=== PATIENT | male | born 1985 | race Caucasian/White ===

== ENCOUNTER 2021-07-22 15:10 | Emergency (ER) | payer MEDICAID, SELFPAY ==
[2021-07-22 15:31] VITALS: BP 123/98; PULSE 74; RESP 18; TEMP 37; O2SAT 98
--- NOTE | 2021-07-22 15:37 | W.ED.GENAD ---
Discharge Plan Disposition Patient Disposition: HOME Condition: Stable Discharge Details Clinical Impression: Fall, Lumbago with sciatica, left side Primary Care Provider: Unknown,Unknown ED Provider: Kandi Ohara Home Meds and New Rx's Prescriptions: New gabapentin 600 mg tablet 600 mg PO TID PRN (Reason: muscle spasm) 28 Days Qty: 84 RF: 0 Continued gabapentin 600 mg Tablet 600 mg PO TID RF: 0 diazepam 5 mg Tablet 5 mg PO DAILY RF: 0 buprenorphine-naloxone [Suboxone] 8-2 mg Film 16 film sublingual DAILY RF: 0 Discharge Instructions Instructions: Low Back Strain (ED), Fall Prevention (ED) Additional Instructions: Alternate Ice and Heat. Take Tylenol or Ibuprofen every 4-6 hours as needed for pain and swelling. Keep abrasion clean and dry. Wash daily with soap and water. Follow up with PCP in 1-2 weeks if possible for establishment. Stand Alone Forms: Work Release Referrals: Alfredo Ward [ NON-[facility] STAFF PHYSICIAN] - 2 weeks Jet Roberts PA [NURSE PRACTITIONER] - Discharge Data Discharge Date/Time-TO BE ENTERED AT DEPARTURE: 07/22/21 15:58 Medical Decision Making 36 year bettie male presents to ED with left lower back pain with radiation down left leg s/p a slip off 3 rungs from a ladder [employer]. He reports he hit his left side of head on the ladder and has a superficial abrasion to left anterior patel. Denies trouble urinating, loss of bowel or bladder control. He describes pain as muscle spasms. Patient has a hx of lumbar fusion surgery, neuropathy and low back pain. Reports he ran out of his Gabapentin 600mg PO TID 2 days ago, just moved here and has not been established with a PCP. At this time imaging not needed due to patient did not actually fall onto the ground. Patient reports that this is consistent with his chronic pain. I do expect exacerbated sciatica type pain. Patient given Gabapentin refill prescription, referred to PCP for establishment, patient instructed to be off work for couple days if needed, instructed on wound care and strict return instructions. Verbalized understanding. Patient discharged in stable condition ambulatory in department. HPI General Mode of arrival: ambulatory. Date/Time Provider Initiated Documentation: 07/22/21 15:31. Limitations to Documentation: no limitations. Information obtained by: patient and RN notes reviewed. 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 He reports he hit his left side of head on the ladder and has a superficial abrasion to left anterior patel. Denies trouble urinating, loss of bowel or bladder control. He describes pain as muscle spasms. Patient has a hx of lumbar fusion surgery, neuropathy and low back pain. Reports he ran out of his Gabapentin 600mg PO TID 2 days ago, just moved here and has not been established with a PCP. Related Data Home Medications Medication Instructions Recorded Confirmed buprenorphine-naloxone [Suboxone] 16 film SUBLINGUAL DAILY 07/22/21 07/22/21 diazepam 5 mg PO DAILY 07/22/21 07/22/21 gabapentin 600 mg PO TID 07/22/21 07/22/21 gabapentin 600 mg PO TID PRN 28 Days #84 tab 07/22/21 Previous Rx's Medication Instructions Recorded gabapentin 600 mg PO TID PRN 28 Days #84 tab 07/22/21 Allergies Allergy/AdvReac Type Severity Reaction Status Date / Time Sulfa (Sulfonamide Allergy Unverified 07/22/21 15:34 Antibiotics) General Stated Complaint: Nk/Back Pain STEVE: 3 Review of Systems All systems reviewed & are unremarkable except as noted in HPI and below Constitutional Constitutional: Reports as per HPI Gastrointestinal Gastrointestinal: Denies constipation and Denies fecal incontinence Genitourinary Genitourinary: Denies difficulty urinating, Denies urinary hesitancy and Denies urinary incontinence Musculoskeletal Musculoskeletal: Reports as per HPI, Reports abnormal gait, Denies limited range of motion, Denies loss of height and Reports stiffness Integumentary/Breasts Skin/Breast: Reports wounds (Left anterior patel superfiscial abrasion) Neurologic Neurologic: Reports abnormal gait [facility] Surgical History (Updated 07/22/21 @ 15:43 by Kandi Ohara) History of lumbar fusion Social History Smoking/Tobacco Use Status: Current every day Smoking risk assessment performed?: Yes Alcohol Intake: never Substance use type: former substance user Do you feel safe at home: Yes Do you feel safe in your relationship?: Yes Exam Const General: cooperative, comfortable, well developed and well groomed Nutritional Appearance: average body habitus Orientation: alert, awake and oriented x3 Back/Spine/Pelvis Cervical Spine: normal cervical lordosis Other: Healed Surgical scar noted to lower lumbar spine area, left sided paraspinous tenderness with palpation. No crepitus or step off with palpation Extrem Left lower extremity: lower leg Details: abrasion Upper/lower leg/hip images: 1. Anterior superficial abrasion noted. Course Vital Signs Vital signs: Vital Signs Temperature 37 C 07/22/21 15:31 Pulse 74 07/22/21 15:31 Respiratory Rate 18 07/22/21 15:31 Blood Pressure 123/98 H 07/22/21 15:31 Pulse Oximetry 98 07/22/21 15:31 Temperature 37 C 07/22/21 15:31 Temperature Source Temporal Artery Scan 07/22/21 15:31 Pulse 74 07/22/21 15:31 Respiratory Rate 18 07/22/21 15:31 Blood Pressure 123/98 H 07/22/21 15:31 Blood Pressure Position Sitting 07/22/21 15:31 Pulse Oximetry 98 07/22/21 15:31 Oxygen Delivery Method Room Air 07/22/21 15:31 Oxygen Flow Rate 0 07/22/21 15:31
[2021-07-22 15:52] VITALS: BP 123/98; PULSE 74; RESP 18; TEMP 37; O2SAT 98
[2021-07-22] MEDS: Gabapentin 300 MG CAP 600 MG PO (15:52)
== END 2021-07-22 15:58 | disposition home or self-care (01) ==
PROVIDERS: Emergency Provider Registered Nurse Emergency
DX: M54.42 Lumbago with sciatica, left side (principal); W17.89XA Other fall from one level to another, initial encounter
CPT/HCPCS: 99283

== ENCOUNTER 2023-07-18 10:26 | Emergency (ER) | payer MEDICAID, SELFPAY ==
[2023-07-18 10:31] VITALS: BP 113/77; PULSE 71; RESP 18; O2SAT 100
[2023-07-18 11:05] LABS: Abs Immature Grans 0.01 10^3/uL (0.0-0.06); Absolute Basophil Count 0.04 10^3/uL (0.0-0.2); Absolute Eosinophil Count 0.17 10^3/uL (0.0-0.7); Absolute Lymphocyte Count 2.34 10^3/uL (1.2-3.4); Absolute Monocyte Count 0.56 10^3/uL (0.1-0.8); Absolute Neutrophil Count 3.85 10^3/uL (1.2-6.7); Basophils % 0.6; Eosinophils % 2.4; HCT 41.5 % (40.0-50.0); HGB 14.1 g/dL (13.5-17.5); Immature Grans % 0.1; Lymphocytes % 33.6; MCH 28.8 pg (27.0-33.0); MCV 85 fL (80-95); MPV 9.7 fL (8.0-11.0); Neutrophils % 55.3; Platelet Count 273 10^3/uL (130-400); RBC 4.89 10^6/uL (4.36-5.78); RDW 12.4 % (11.8-14.1); RDW-SD 38.2 fL; WBC 6.97 10^3/uL (4.4-10.8)
[2023-07-18 11:24] LABS: Salicylate < 2.8 mg/dL (<2.8)
[2023-07-18 11:25] LABS: Acetaminophen < 2 ug/mL (10-30)
[2023-07-18 11:36] LABS: TSH (W/Ref FT4) 3.63 uIU/mL (0.36-3.74)
[2023-07-18 11:38] LABS: ALT 21 U/L (16-63); AST 25 U/L (15-37); Albumin 4.4 g/dL (3.4-5.0); Alkaline Phosphatase 64 U/L (46-116); Anion Gap 6.9 mmol/L (3-11); BUN 21 mg/dL (7-18); Bilirubin, Total 0.4 mg/dL (0.2-1.0); CO2 30.1 mmol/L (21.0-32.0); CREATININE 0.9 mg/dL (0.70-1.30); Chloride 97 mmol/L (98-107); Estimated GFR 113.51 (mL/min/1.73m2); Glucose 85 mg/dL (74-106); Lipase 16 U/L (16-77); Potassium 3.7 mmol/L (3.5-5.1); Sodium 134 mmol/L (136-145); Total Protein 8.1 g/dL (6.4-8.2)
[2023-07-18 11:49] LABS: ETHANOL BLOOD < 3.0 mg/dL (<10)
--- NOTE | 2023-07-18 12:04 | NUR.NOTE ---
Nursing Note: PT belongings locked & secured in ZONE B #1
[2023-07-18] MEDS: clonazePAM 1 MG TAB PO (12:14)
[2023-07-18 12:30] LABS: *AMPHETAMINES SCREEN URINE Positive (Negative); *BARBITURATES SCREEN URINE Negative (Negative); *BENZODIAZEPINES SCREEN URINE Negative (Negative); Cannabinoids THC Positive (Negative); Cocaine Screen,Urine Negative (Negative); METHADONE URINE SCREEN Negative (Negative); OPIATES URINE SCREEN Negative (Negative)
[2023-07-18 12:31] LABS: Tricyclic Antidepressants Negative (Negative)
--- NOTE | 2023-07-18 14:13 | W.ED.GENAD ---
Discharge Plan Disposition Patient Disposition: Home Discharge Details Clinical Impression: Mood disorder, Polysubstance abuse Primary Care Provider: Unknown,Unknown ED Provider: Caitlin Meng Home Meds and New Rx's Prescriptions: Continued gabapentin 600 mg Tablet 600 mg PO TID diazepam 5 mg Tablet 5 mg PO DAILY buprenorphine-naloxone [Suboxone] 8-2 mg Film 16 film sublingual DAILY Discharge Instructions Additional Instructions: You have declined mental health assessment replacement, please be reevaluated by your provider at your earliest ability Discharge Data Discharge Date/Time-TO BE ENTERED AT DEPARTURE: 07/18/23 15:07 Medical Decision Making 38-year-old male, alert, oriented, nonfocal neurological exam, verbose, flight of ideas, does report taking Vyvanse and phenobarbital this morning although tox screen is negative for barbiturates interestingly. Is positive for amphetamines and marijuana. Took his Suboxone prior to arrival. Being removed from Klonopin secondary to phenobarbital reportedly in his system by a psychiatrist at [facility]. Denying specific suicidality. Reports significant depression, denies any alcohol consumption. Denies any auditory visual hallucinations. Denies fever or chills. Denies recent IV drug use. Patient was evaluated by [facility]: Does not qualify for , will assess voluntary placement Of note, patient has had numerous complaints against the hospital stating he is going to file a complaint regarding inappropriate care let me have my hoody or I will hang myself from the ceiling with these blankets Patient does not wish to be involved in his care, he is fully alert, oriented, of decisional capacity, does not endorse current suicidality, is ambulatory with steady gait, we offered resources and voluntary placement and patient has declined At time of discharge she states that he will be calling 911 arrived to [place] or [facility] HPI General Date/Time Provider Initiated Documentation: 07/18/23 10:32. HPI Narrative: This 38-year-old gentleman with past medical history depression, anxiety, polysubstance abuse presents for report of intermittent suicidality with depression. Using a friend's phenobarbital and Vyvanse. Reports that his psychiatrist at [facility] is weaning him off Klonopin as he tested positive for phenobarbital and states he is run out of his Klonopin. Denies any chest pain or shortness of breath. Denies any specific pain complaints. Denies specific plan to harm himself at this time. Requesting to go to [place]. Denies auditory or visual hallucinations. Denies homicidal ideation. Denies any attempts to harm self today. States has had numerous mental health admissions in the past. Last was several months ago. Related Data Home Medications Medication Instructions Recorded Confirmed buprenorphine 8 mg-naloxone 2 mg 16 film sublingual DAILY 07/22/21 07/22/21 sublingual film (Suboxone) diazepam 5 mg tablet 5 mg PO DAILY 07/22/21 07/22/21 gabapentin 600 mg tablet 600 mg PO TID 07/22/21 07/22/21 Allergies Allergy/AdvReac Type Severity Reaction Status Date / Time Sulfa (Sulfonamide Allergy Unverified 07/22/21 15:34 Antibiotics) General Stated Complaint: PsychEval STEVE: 2 PFSH All Active Problems (Updated 07/22/21 @ 15:43 by Kandi Ohara NP) Polysubstance abuse (Acute) Mood disorder (Acute) Lumbago with sciatica, left side (Acute) Fall (Acute) History of lumbar fusion (Acute) Social History Smoking/Tobacco Use Status: Former Tobacco Use Tobacco: How many years used: 20 Smoking risk assessment performed?: Yes Alcohol Intake: never Substance use type: marijuana and prescription drug Details: uses Vyvanse not prescribed REINALDO HUIZAR 07/18/23 Housing: homeless Do you feel safe at home: Yes Do you feel safe in your relationship?: Yes Additional Social history: family in [place] and [place] have no family here in [place]. REINALDO HUIZAR 07/18/2023 Course Vital Signs Vital signs: Vital Signs Pulse 71 07/18/23 10:31 Respiratory Rate 18 07/18/23 10:31 Blood Pressure 113/77 07/18/23 10:31 Pulse Oximetry 100 07/18/23 10:31 Pulse 71 07/18/23 10:31 Respiratory Rate 18 07/18/23 10:31 Respiratory Effort Normal 07/18/23 10:40 Blood Pressure 113/77 07/18/23 10:31 Pulse Oximetry 100 07/18/23 10:31 Lab/Test Results Lab/Test Results: Laboratory Tests Range/Units 07/18/23 07/18/23 07/18/23 10:48 10:58 12:10 WBC (4.4-10.8) 10^3/uL 6.97 RBC (4.36-5.78) 10^6/uL 4.89 Hgb (13.5-17.5) g/dL 14.1 Hct (40.0-50.0) % 41.5 MCV (80-95) fL 85 MCH (27.0-33.0) pg 28.8 MCHC (32.0-36.0) % 34.0 RDW (11.8-14.1) % 12.4 Plt Count (130-400) 10^3/uL 273 MPV (8.0-11.0) fL 9.7 Immature Gran % 0.1 Neutrophils % 55.3 Lymphocytes % 33.6 Monocytes % 8.0 Eosinophils % 2.4 Basophils % 0.6 Nucleated RBC % (0.0-0.3) % 0.0 Absolute Neutrophils (1.2-6.7) 10^3/uL 3.85 Absolute Lymphocytes (1.2-3.4) 10^3/uL 2.34 Absolute Monocytes (0.1-0.8) 10^3/uL 0.56 Absolute Eosinophils (0.0-0.7) 10^3/uL 0.17 Absolute Basophils (0.0-0.2) 10^3/uL 0.04 Sodium (136-145) mmol/L 134 L Potassium (3.5-5.1) mmol/L 3.7 Chloride (98-107) mmol/L 97 L Carbon Dioxide (21.0-32.0) mmol/L 30.1 Anion Gap (3-11) mmol/L 6.9 BUN (7-18) mg/dL 21 H Creatinine (0.70-1.30) mg/dL 0.9 Est GFR (CKD-EPI 2020) (mL/min/1.73m2) 113.51 Glucose (74-106) mg/dL 85 Calcium (8.5-10.1) mg/dL 10.0 Total Bilirubin (0.2-1.0) mg/dL 0.4 AST (15-37) U/L 25 ALT (16-63) U/L 21 Alkaline Phosphatase (46-116) U/L 64 Total Protein (6.4-8.2) g/dL 8.1 Albumin (3.4-5.0) g/dL 4.4 Lipase (16-77) U/L 16 TSH (0.36-3.74) uIU/mL 3.63 Salicylates (<2.8) mg/dL < 2.8 Urine Opiates Screen (Negative) Negative Urine Methadone Screen (Negative) Negative Acetaminophen (10-30) ug/mL < 2 Ur Barbiturates Screen (Negative) Negative Ur Tricyclics Screen (Negative) Negative Ur Amphetamines Screen (Negative) Positive A U Benzodiazepines Scrn (Negative) Negative Urine Cocaine Screen (Negative) Negative Ur THC Screen (Negative) Positive A Ethyl Alcohol (<10) mg/dL < 3.0 PAWSS Have you Been Recently Intoxicated or Drunk Within the Last 30 days?: No Have you Ever Experienced Previous Episodes of Alcohol Withdrawal?: No Have you ever Experienced Withdrawal Seizures?: No Have you ever Experienced Delirium Tremens(DT)s?: No Have you ever undergone Alcohol Rehabilitation Treatment (i.e, inpt ot outpatient treatment programs)?: No Have you ever Experienced Blackouts?: No Have you ever Combined Alcohol with other Downers within the last 90 days?: No Have you ever Combined Alcohol with any other Substance of Abuse during the last 90 days?: No Result: 0
--- NOTE | 2023-07-18 14:27 | NUR.NOTE ---
Nursing Note: 1144 This RN walked in to Patient's room patient was biting and picking at the stitches on the facility provided bath blanket. After asking what was the patient was planning on doing with the blankets Patient told this RN that if we don't give him his hoodie back I will hang my self from up there (pointing at the ceiling) with this (gesturing to blanket) This RN, CPSO and security standing by took all blankets and sheets from [facility] and replaced with facility provided blankets that are unable to be ripped or torn by hand. One blanket on the bottom to lay on and one to cover. Patient unhappy with plan but used blankets as provided.
--- NOTE | 2023-07-18 15:05 | NUR.NOTE ---
Nursing Note: was reported to this RN By [facility] worker that patient expressed wishes to leave and go to [facility]. Mental health workers also stated that patient said I dont have to answer any of your questions also I don't have to talk to you if I don't want to patient was D/C given all belongings back, was given a number for [facility] [employer] as requested by patient. Patient refused to sign any discharge paperwork. Patient told this RN and security that he plans on calling the ambulance as soon as he leaves and they will take him to another hospital because I have money and they will take me anywhere I need to go Patient walked out of facility on own accord.
[2023-07-18 15:13] VITALS: TEMP 36.5
== END 2023-07-18 15:07 | disposition home or self-care (01) ==
PROVIDERS: Emergency Provider Physician Assistant
DX: F39 Unspecified mood [affective] disorder (principal); F32.A Depression, unspecified; F19.10 Other psychoactive substance abuse, uncomplicated; Z87.891 Personal history of nicotine dependence; Z59.00 Homelessness unspecified
CPT/HCPCS: 80053; 80307; 83690; 99284; 80320; 80329; 84443; 85025

== ENCOUNTER 2024-04-04 01:24 | Emergency (ER) | payer SELFPAY ==
[2024-04-04 01:27] VITALS: PULSE 120; RESP 18; TEMP 35.8; O2SAT 96
[2024-04-04 01:30] VITALS: BP 113/86
--- NOTE | 2024-04-04 01:42 | ED.GENADUL_ITS ---
Discharge Plan Disposition Patient Disposition: Home Condition: Stable Discharge Details Chief Complaint: DentalOral Clinical Impression: Encounter for medical screening examination Primary Care Provider: Unknown,Unknown ED Provider: Dimple Gonzalez Home Meds and New Rx's Prescriptions: No Action clonazepam 0.5 mg tablet 1 mg PO BID Patient Comments: TAKE ONE TABLET BY MOUTH NIGHTLY clonidine HCl 0.1 mg tablet 0.1 mg PO ONCE PRN Patient Comments: TAKE ONE TABLET BY MOUTH TWICE DAILY NEEDED FOR ANXIETY dextroamphetamine-amphetamine 20 mg capsule,extended release 24hr 20 mg PO DAILY Patient Comments: TAKE ONE CAPSULE BY MOUTH ONCE DAILY losartan 25 mg tablet 50 mg PO DAILY Patient Comments: TAKE 1 TABLET BY MOUTH EVERY DAY buprenorphine HCl 8 mg tablet, sublingual 16 mg sublingual DAILY HPI General Mode of arrival: ambulatory . Date/Time Provider Initiated Documentation: 04/04/24 01:28 . Limitations to Documentation: no limitations . Information obtained by: patient . Related Data Home Medications ?Medication ?Instructions ?Recorded ?Confirmed buprenorphine HCl 8 mg sublingual 16 mg sublingual DAILY 04/04/24 04/04/24 tablet clonazepam 0.5 mg tablet 1 mg PO BID 04/04/24 04/04/24 clonidine HCl 0.1 mg tablet 0.1 mg PO ONCE PRN 04/04/24 04/04/24 dextroamphetamine-amphetamine ER 20 mg PO DAILY 04/04/24 04/04/24 20 mg 24hr capsule,extend release losartan 25 mg tablet 50 mg PO DAILY 04/04/24 04/04/24 Allergies Allergy/AdvReac Type Severity Reaction Status Date / Time Sulfa (Sulfonamide Allergy Hives Unverified 04/04/24 01:33 Antibiotics) General Stated Complaint: DentalOral STEVE: 4 Review of Systems Narrative: UTO Exam Narrative Exam Narrative: General: Alert, in no acute distress. Head: Normocephalic, atraumatic Neck: Trachea midline, ?Neck supple. Cardiac: No cyanosis. Resp: No respiratory distress. Speaking in full sentences. Abd: ?Non-distended Extremities: ?No deformities.? Neurologic: Alert. ? Moves all extremities freely against gravity Psych: Restless, cooperative.? Adequate hygiene. Speech slightly fast but not pressured with normal volume, rate, rythym and tone. Goal directed.? Denies SI/HI/AH/VH. ? Does not appear to be responding to internal stimuli. Course Vital Signs Vital signs: Vital Signs Temperature 35.8 C L 04/04/24 01:27 Pulse 120 H 04/04/24 01:27 Respiratory Rate 18 04/04/24 01:27 Pulse Oximetry 96 04/04/24 01:27 Temperature 35.8 C L 04/04/24 01:27 Temperature Source Skin 04/04/24 01:27 Pulse 120 H 04/04/24 01:27 Respiratory Rate 18 04/04/24 01:27 Respiratory Effort Normal 04/04/24 01:30 Blood Pressure 113/86 04/04/24 01:30 Blood Pressure Position Sitting 04/04/24 01:27 Pulse Oximetry 96 04/04/24 01:27 Oxygen Delivery Method Room Air 04/04/24 01:27 Oxygen Flow Rate 0 04/04/24 01:27 Medical Decision Making 38yo M presents with cc of dental pain in triage. Tachycardiac after ambulating into the department, vital signs otherwise reassuring. Restless on exam, remains in hallway and did not proceed to treatment room. When I speak with Mr. Abbott and ask him what brings him to the emergency department he states nothing, I don't need anything, she can tell you (gesturing to the nurse). I asked if there was anything we could help him with, he then asks for a a printout of all the places near here that would tow a car. I informed him that I could not help with this, and asked if there were any medical issues he was having. He stated no . I then inquired if he was looking for any psychiatric help or having any psychiatric issues; he again stated no and I'll just leave. Declined further evaluation/exam/questioning. I have no indication to hold him and cannot evaluate him further without his willingness to engage in history or exam. Ambulated out of the department with a steady gait; did not wait for paperwork. Quality:SDOH Health Related Social Needs: No Data to Display PFSH All Active Problems (Updated 07/22/21 @ 15:43 by Kandi Ohara NP) Encounter for medical screening examination (Acute) Lumbago with sciatica, left side (Acute) Fall (Acute) History of lumbar fusion (Acute) Social History Smoking/Tobacco Use Status: Former Tobacco Use Tobacco: How many years used: 20 Smoking risk assessment performed?: Yes Alcohol Intake: never Substance use type: marijuana and prescription drug Details: uses Vyvanse not prescribed REINALDO HUIZAR 07/18/23 Housing: homeless Do you feel safe at home: Yes Do you feel safe in your relationship?: Yes Additional Social history: family in [place] and [place] have no family here in [place]. REINALDO HUIZAR 07/18/2023
== END 2024-04-04 01:46 | disposition home or self-care (01) ==
PROVIDERS: Emergency Provider Student in an Organized Health Care Education/Training Program
DX: Z53.21 Procedure and treatment not carried out due to patient leaving prior to being seen by health care provider (principal)

== ENCOUNTER 2024-04-06 07:45 | Inpatient (IN) | payer MEDICAID, SELFPAY ==
[2024-04-06] VITALS (46 sets, daily range): BP systolic 107–157; BP diastolic 49–97; PULSE 55–117; RESP 8–23; TEMP 36.1–37.8; O2SAT 94–100
--- NOTE | 2024-04-06 08:30 | RT.EKG_ITS ---
APPROVED REPORT Exam: Resting ECG Reason for Exam: overdose Patient Location: E HR:69 bpm ECG Measurements Heart Rate 69 AXIS RI 157 P 76 QRSd 84 QRS 61 QT 396 T 64 QTc 425 Conclusion Sinus rhythm...normal P axis, V-rate 60- 99 Probable left atrial enlargement...P >50mS, <-0.10mV V1 Probable left ventricular hypertrophy...multiple LVH criteria ST elev, probable normal early repol pattern...ST elevation, age<55 sinus rhtyhm, normal axis, normal intervals, consider hyperacute lateral t waves
[2024-04-06 08:59] LABS: Abs Immature Grans 0.01 10^3/uL (0.0-0.06); Absolute Basophil Count 0.04 10^3/uL (0.0-0.2); Absolute Eosinophil Count 0.12 10^3/uL (0.0-0.7); Absolute Lymphocyte Count 1.18 10^3/uL (1.2-3.4); Absolute Monocyte Count 0.51 10^3/uL (0.1-0.8); Absolute Neutrophil Count 3.96 10^3/uL (1.2-6.7); Basophils % 0.7 %; Eosinophils % 2.1 %; HCT 39.3 % (40.0-50.0); HGB 13.8 g/dL (13.5-17.5); Immature Grans % 0.2 %; Lymphocytes % 20.3 %; MCH 29.2 pg (27.0-33.0); MCHC 35.1 % (32.0-36.0); MCV 83 fL (80-95); MPV 10.9 fL (8.0-11.0); Monocytes % 8.8 %; Neutrophils % 67.9 %; Platelet Count 194 10^3/uL (130-400); RBC 4.72 10^6/uL (4.36-5.78); RDW 12.3 % (11.8-14.1); RDW-SD 37.7 fL; WBC 5.82 10^3/uL (4.4-10.8)
[2024-04-06 09:16] LABS: ALT 35 U/L (16-63); AST 67 U/L (15-37); Albumin 3.8 g/dL (3.4-5.0); Alkaline Phosphatase 77 U/L (46-116); Anion Gap 9.8 mmol/L (3-11); BUN 10 mg/dL (7-18); Bilirubin, Total 0.79 mg/dL (0.2-1.0); CO2 31.2 mmol/L (21.0-32.0); CREATININE 0.8 mg/dL (0.70-1.30); Calcium 9.1 mg/dL (8.5-10.1); Chloride 96 mmol/L (98-107); Estimated GFR 117.63 (mL/min/1.73m2); Glucose 98 mg/dL (74-106); Potassium 3.6 mmol/L (3.5-5.1); Sodium 137 mmol/L (136-145); Total Protein 7.9 g/dL (6.4-8.2)
[2024-04-06 09:20] LABS: ETHANOL BLOOD < 3.0 mg/dL (<10)
[2024-04-06 09:44] LABS: Acetaminophen < 2 ug/mL (10-30); Salicylate < 2.8 mg/dL (<2.8)
[2024-04-06 10:01] LABS: Bilirubin Negative (Negative); Blood Negative (Negative); Clarity Clear (Clear); Glucose Negative (Negative); Ketones Negative (Negative); Leukocyte Esterase Negative (Negative); Nitrite Negative (Negative); Specific Gravity <= 1.005 (1.005-1.025); Urobilinogen 0.2 mg/dL (Up to 0.2)
[2024-04-06 10:13] LABS: *AMPHETAMINES SCREEN URINE Negative (Negative); *BARBITURATES SCREEN URINE Negative (Negative); *BENZODIAZEPINES SCREEN URINE Negative (Negative); Cannabinoids THC Positive (Negative); Cocaine Screen,Urine Negative (Negative); METHADONE URINE SCREEN Negative (Negative); OPIATES URINE SCREEN Negative (Negative)
[2024-04-06 10:14] LABS: Tricyclic Antidepressants Negative (Negative)
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
--- NOTE | 2024-04-06 12:46 | W.PC.ACHO ---
Registration Status: Primary Language: Preferred Language: ED Information & Data Chief Complaint PsychEval 04/06/24 11:15 Triage Note drank a bottle of nyquil 04/06/24 07:52 last night-suicide attempt. lives in [facility]. was visiting in [place]- 2 nights ago -on his way back to [place].-- was in [id number] ER. spoke to crisis yesterday-was at urgent care . crisis offered him a care bed-pt declined. says he is in a complete crisis-needs inpt care. has no way to get to [place] for his vehicle . everything is in his vehicle-phone, wallet, clothes. states he just bought vehicle a few months ago-felt like he finally got everything together. feels like he can never do anything right. slept in a dumpster last night-back hurts. has been doing a lot of walking the last few days . Most Recent Vital Signs Temperature 36.2 C L 04/06/24 07:52 Temperature Source Temporal Artery Scan 04/06/24 07:52 Pulse 58 L 04/06/24 12:30 Pulse 75 04/06/24 12:31 Respiratory Rate 10 L 04/06/24 12:31 Respiratory Effort Normal 04/06/24 08:06 Blood Pressure 129/76 04/06/24 12:30 Blood Pressure Mean 94 04/06/24 12:30 Blood Pressure Position Sitting 04/06/24 07:52 Pulse Oximetry 100 04/06/24 12:31 Oxygen Delivery Method Room Air 04/06/24 12:30 Oxygen Flow Rate 0 04/06/24 12:30 Pain Level 5 04/06/24 07:52 Allergies Sulfa (Sulfonamide Antibiotics) Allergy (Unverified 04/06/24 08:02) Hives Active Medications Generic Name Dose Route Start Last Admin Trade Name Freq PRN Reason Stop Dose Admin Acetylcysteine 12,250 mg/ 200 mls @ 153.094 mls/hr 04/06/24 12:00 04/06/24 12:33 Dextrose/Water IV 04/06/24 13:18 153.094 mls/hr INFUSION ONE Infusion IV IV Catheter Type [Right Saline Lock Forearm] IV Catheter Gauge [Right 20 Forearm] Diet Orders Category Date Time Status Regular/Normal [DIET] Nutrition 04/06/24 Lunch Active Diagnostics 04/06/24 04/06/24 04/06/24 Range/Units 23:00 09:50 08:55 WBC Pending 5.82 (4.4-10.8) 10^3/uL RBC Pending 4.72 (4.36-5.78) 10^6/uL Hgb Pending 13.8 (13.5-17.5) g/dL Hct Pending 39.3 L (40.0-50.0) % MCV Pending 83 (80-95) fL MCH Pending 29.2 (27.0-33.0) pg MCHC Pending 35.1 (32.0-36.0) % RDW Pending 12.3 (11.8-14.1) % Plt Count Pending 194 (130-400) 10^3/uL MPV Pending 10.9 (8.0-11.0) fL Immature Gran % 0.2 % Neutrophils % 67.9 % Lymphocytes % 20.3 % Monocytes % 8.8 % Eosinophils % 2.1 % Basophils % 0.7 % Nucleated RBC % 0.0 (0.0-0.3) % Absolute Neutrophils 3.96 (1.2-6.7) 10^3/uL Absolute Lymphocytes 1.18 L (1.2-3.4) 10^3/uL Absolute Monocytes 0.51 (0.1-0.8) 10^3/uL Absolute Eosinophils 0.12 (0.0-0.7) 10^3/uL Absolute Basophils 0.04 (0.0-0.2) 10^3/uL PT Pending 10.0 (9.1-11.1) sec INR Pending 1.0 (0.9-1.1) Sodium Pending 137 (136-145) mmol/L Potassium Pending 3.6 (3.5-5.1) mmol/L Chloride Pending 96 L (98-107) mmol/L Carbon Dioxide Pending 31.2 (21.0-32.0) mmol/L Anion Gap Pending 9.8 (3-11) mmol/L BUN Pending 10 (7-18) mg/dL Creatinine Pending 0.8 (0.70-1.30) mg/dL Est GFR (CKD-EPI 2021) Pending 117.63 (mL/min/1.73m2) Glucose Pending 98 (74-106) mg/dL Calcium Pending 9.1 (8.5-10.1) mg/dL Total Bilirubin Pending 0.79 (0.2-1.0) mg/dL AST Pending 67 H (15-37) U/L ALT Pending 35 (16-63) U/L Alkaline Phosphatase Pending 77 (46-116) U/L Total Protein Pending 7.9 (6.4-8.2) g/dL Albumin Pending 3.8 (3.4-5.0) g/dL Urine Color Yellow (Yellow) Urine Clarity Clear (Clear) Urine pH 6.0 (5-8) Ur Specific [place] <= 1.005 (1.005-1.025) Urine Protein Negative (Neg-Trace) mg/dL Urine Ketones Negative (Negative) mg/dL Urine Blood Negative (Negative) Urine Nitrite Negative (Negative) Urine Bilirubin Negative (Negative) Urine Urobilinogen 0.2 (Up to 0.2) mg/dL Ur Leukocyte Esterase Negative (Negative) Urine Glucose Negative (Negative) mg/dL Salicylates < 2.8 (<2.8) mg/dL Urine Opiates Screen Negative (Negative) Urine Methadone Screen Negative (Negative) Acetaminophen < 2 (10-30) ug/mL Ur Barbiturates Screen Negative (Negative) Ur Tricyclics Screen Negative (Negative) Ur Amphetamines Screen Negative (Negative) U Benzodiazepines Scrn Negative (Negative) Urine Cocaine Screen Negative (Negative) Ur THC Screen Positive A (Negative) Ethyl Alcohol < 3.0 (<10) mg/dL Intake and Output - 24 Hour Total 04/06/24 07:45 thru 04/06/24 12:33 Intake Total 168.403 Balance 168.403 Weight 81.647 kg Intake: IV 168.403 Falls Risk Assessment History of Falls No History 04/06/24 09:06 Fall Total Score 0 04/06/24 09:06 Level of Risk Standard/Low Risk 04/06/24 09:06 v v v v v v v v v Sending and/or Receiving Nurses: Please use comment section below to note any information pertinent to the patient hand-off not included above. Information / Comments: Report received from: Migdalia
[2024-04-06] MEDS: clonazePAM 1 MG TAB PO (13:05)
--- NOTE | 2024-04-06 13:28 | NUR.NOTE ---
1300 itchy and light rash arms and neck. body feels like it is on fire. given klonopin 1mg per Dr Zuñiga.Nursing Note:
--- NOTE | 2024-04-06 13:46 | PHA.REVIEW2 ---
Pharmacy Admission Review Admission Clinical Review Admission Pharmacy Review: DVT prophylaxis (Acute) Itching due to drug (Acute) Depression with suicidal ideation (Acute) Acetaminophen overdose (Acute) Sulfa (Sulfonamide Antibiotics) Allergy (Unverified 04/06/24 08:02) Hives Resuscitation Status Full Code Height 6 ft 4 in Weight 81.647 kg Comments Comments/Follow Ups: Per morning meeting, patient staying for observation while receiving acetylcysteine and then will need psych placement. Will reach out regarding missing home med (Adderall) if patient is not discharged tomorrow Pharmacy Admission Review Renal Dosing Renal Dosing: BUN 10 mg/dL (7-18) 04/06/24 08:55 Creatinine 0.8 mg/dL (0.70-1.30) 04/06/24 08:55 Medications needing adjustments: Reviewed (CrCl 147.42 mL/min) List of meds needing interventions: Current medications are okay Anticoagulation Anticoagulation: Hgb 13.8 g/dL (13.5-17.5) 04/06/24 08:55 Hct 39.3 % (40.0-50.0) L 04/06/24 08:55 Plt Count 194 10^3/uL (130-400) 04/06/24 08:55 INR 1.0 (0.9-1.1) 04/06/24 08:55 Creatinine 0.8 mg/dL (0.70-1.30) 04/06/24 08:55 DVT Prophylaxis: Reviewed (None at this time) Relevant Labs Relevant Labs: Sodium 137 mmol/L (136-145) 04/06/24 08:55 Potassium 3.6 mmol/L (3.5-5.1) 04/06/24 08:55 Chloride 96 mmol/L (98-107) L 04/06/24 08:55 Electrolytes, C-Reactive P, ESR: Reviewed (AST 67) Cardiac Review BP, HR, EF%: Reviewed (BP WNL, HR 58, RR 10) QTc Review QTc: Reviewed (EKG report pending) IV to PO Switch IV Medications: Reviewed (acetylcysteine) Home Meds Home Med List reviewed: Intervened Relevent Home Meds Not ordered & why?: Adderall Confirmed Suboxone dose on VPMS Current Meds Current Medication Order Review: Intervened Comments: Added IV admission order set Acetylcysteine for APAP over-dose per protocol Comments Comments/Follow Ups: Per morning meeting, patient staying for observation while receiving acetylcysteine and then will need psych placement. Will reach out regarding missing home med (Adderall) if patient is not discharged tomorrow
[2024-04-06] MEDS: Normal Saline Flush 10 ML SYR IVP ×2 (14:11→19:57)
[2024-04-06] MEDS: diphenhydrAMINE 50 MG/ML VIAL IVP (14:11)
--- NOTE | 2024-04-06 14:51 | CMSP_ITS ---
Date of service: 04/06/24 Time of Service: 14:51 Care Management Safety Plan Status Status: Interim Reason for Wait Reason for Wait: Assessment/Screening Safety Plan Safety Plan: Oswald is a 38 year old man who presented to the ED on 04/06/24 following a suicide attempt involving ingestion of a bottle of Nyquil (contains acetaminophen). He has a history of PTSD, ADHD and opioid use disorder and is currently without housing.He has one prior suicide attempt ingesting Benedryl. CM will respond to assess patient after patient has been medically cleared and assessed by screener. If screener deems patient meets criteria for psychiatric stabilization CM will facilitate interdepartmental huddle with [facility] screener for safety planning considerations and meet with patient to review [facility] policy and safety plan, establish individual wishes for treatment and maintain patient rights. In the interim; please note safety plan below to guide patient care while a waiting further assessment in the ED.? SAFETY PLAN: 1. Will remain on suicide precautions and in paper clothes.? 2. Will remain in room under direct supervision of one-on-one staff at all times provided by TIFFANIE, RIBBON SWEATBAND OPERATOR rubber moulding machine operator. 3. May have paper cups, plates, finger foods as well as a cardboard spoon with which to eat meals. 4. Follow [facility] Management of the Admitted Behavioral Health Patient policy. 5. Comfort bath system only. 6. No personal belongings. May have soft items from activity cart at nursing discretion 7. No visitors. 8. Phone contact limited to parents at nursing discretion 9. Due to VOLUNTARY status, if patient wishes to leave [facility], staff will contact [facility] Crisis Screener ([phone]) and On-Call Va Underwriter ([phone]) as soon as possible. In the event of elopement, notify [facility] Police ([phone]). ? If deemed appropriate for inpatient psychiatric care, safety plan will be established with patient, and care team, to adhere to patient goals, identify restrictions based on behavioral status, address nutrition, and determine allowed personal belongings, tools for hygiene and personal care. As well plan will determine level of activity including ambulation, level of supervision, visitors, and determine privileges based on level of acuity, behaviors and level of engagement by patient.
[2024-04-06] MEDS: Nicotine 4 MG GUM CH ×2 (18:21→19:57)
[2024-04-06] MEDS: clonazePAM 0.5 MG TAB 1 MG PO (19:56)
[2024-04-06 23:37] LABS: HCT 35.8 % (40.0-50.0); HGB 12.4 g/dL (13.5-17.5); MCHC 34.6 % (32.0-36.0); MCV 84 fL (80-95); MPV 11.1 fL (8.0-11.0); Platelet Count 142 10^3/uL (130-400); RBC 4.28 10^6/uL (4.36-5.78); RDW 12.4 % (11.8-14.1); RDW-SD 37.6 fL; WBC 3.93 10^3/uL (4.4-10.8)
[2024-04-06 23:58] LABS: Prothrombin Time 10.5 sec (9.1-11.1)
[2024-04-07 00:04] LABS: ALT 30 U/L (16-63); AST 36 U/L (15-37); Albumin 2.9 g/dL (3.4-5.0); Alkaline Phosphatase 61 U/L (46-116); Anion Gap 6.8 mmol/L (3-11); BUN 6 mg/dL (7-18); Bilirubin, Total 0.33 mg/dL (0.2-1.0); CO2 33.2 mmol/L (21.0-32.0); CREATININE 0.8 mg/dL (0.70-1.30); Calcium 8.5 mg/dL (8.5-10.1); Chloride 99 mmol/L (98-107); Estimated GFR 117.63 (mL/min/1.73m2); Glucose 131 mg/dL (74-106); Potassium 3.3 mmol/L (3.5-5.1); Sodium 139 mmol/L (136-145); Total Protein 6.6 g/dL (6.4-8.2)
[2024-04-07 05:11] VITALS: BP 124/75; PULSE 54; RESP 14; TEMP 35.8; O2SAT 99
[2024-04-07] MEDS: Nicotine 4 MG GUM CH ×4 (06:38→21:17)
[2024-04-07] MEDS: clonazePAM 0.5 MG TAB 1 MG PO ×2 (08:49→21:16)
[2024-04-07] MEDS: Losartan 25 MG TAB PO (08:50)
[2024-04-07 08:55] VITALS: BP 132/89; PULSE 68; RESP 20; TEMP 37; O2SAT 99
[2024-04-07 10:07] LABS: INR 1.1 (0.9-1.1); Prothrombin Time 10.9 sec (9.1-11.1)
[2024-04-07 10:21] LABS: ALT 31 U/L (16-63); AST 32 U/L (15-37); Acetaminophen < 2 ug/mL (10-30)
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
--- NOTE | 2024-04-07 16:24 | CMSP_ITS ---
Date of service: 04/07/24 Time of Service: 16:24 Care Management Safety Plan Status Status: Involuntary Reason for Wait Reason for Wait: Inpatient Admission Safety Plan Safety Plan: INVOLUNTARY FOR INPATIENT PSYCHIATRIC STABILIZATION. Safety plan has been established to meet the needs of the patient, and consideration of the care team, to adhere to patient goals, identify restrictions based on behavioral status, address nutrition, and determine allowed personal belongings, tools for hygiene and personal care. Determine level of activity including ambulation, level of supervision, visitors, and determine privileges based on behaviors and level of engagement by pt. SAFETY PLAN: 1. Will remain on SI/HI precautions. In Paper Clothes 2. Will remain in room under direct supervision of one-on-one staff at all times provided by CPSO; TIFFANIE, CURRICULUM AND INSTRUCTION SPECIALIST stacker and sorter operator. 3. May have paper cups, plates, finger foods as well as a cardboard spoon 4. Follow [facility] Management of the Admitted Behavioral Health Patient policy. 5. Comfort bath system only. 6. No personal belongings 7. Visitors: None at this time 8. Activities: Soft card activities, RN discretion. 9. Bathroom privileges with supervision, at RN discretion. 10. Phone: None at this time 11. Due to INVOLUNTARY status, patient is being held at [facility] by the Department of Mental Health ([facility]) until 2nd certification by [facility] Psychiatrist can be performed (within 24 hours). Staff will provide de-escalation support (CPI) as needed. If patient wishes to leave [facility], staff will contact [facility] Crisis Screener ([phone]) and On-Call Pole Incisor Operator ([phone]) as soon as possible. In the event of elopement, notify [place] State Police ([phone]). Patient is currently involuntarily at [facility]. [facility] Frontline Bottle Packer will continue seeking placement. Please contact the Venipuncturist Pole Incisor Operator ([phone]) for any needed changes to Safety Plan. Safety plan has been provided to interdepartmental care team. Patient will be transported by [employer] at time of discharge.
--- NOTE | 2024-04-07 16:24 | PDOC.CMSAFE ---
Date of service: 04/07/24 Time of Service: 16:24 Care Management Safety Plan Status Status: Involuntary Reason for Wait Reason for Wait: Inpatient Admission Safety Plan Safety Plan: INVOLUNTARY FOR INPATIENT PSYCHIATRIC STABILIZATION. Safety plan has been established to meet the needs of the patient, and consideration of the care team, to adhere to patient goals, identify restrictions based on behavioral status, address nutrition, and determine allowed personal belongings, tools for hygiene and personal care. Determine level of activity including ambulation, level of supervision, visitors, and determine privileges based on behaviors and level of engagement by pt. SAFETY PLAN: 1. Will remain on SI/HI precautions. In Paper Clothes 2. Will remain in room under direct supervision of one-on-one staff at all times provided by CPSO; TIFFANIE, BRAKE LINING FINISHER ASBESTOS child daycare worker. 3. May have paper cups, plates, finger foods as well as a cardboard spoon 4. Follow [facility] Management of the Admitted Behavioral Health Patient policy. 5. Comfort bath system only. 6. No personal belongings 7. Visitors: None at this time 8. Activities: Soft card activities, RN discretion. 9. Bathroom privileges with supervision, at RN discretion. 10. Phone: None at this time 11. Due to INVOLUNTARY status, patient is being held at [facility] by the Department of Mental Health ([facility]) until 2nd certification by [facility] Psychiatrist can be performed (within 24 hours). Staff will provide de-escalation support (CPI) as needed. If patient wishes to leave [facility], staff will contact [facility] Crisis Screener ([phone]) and On-Call Cracking Machine Operator ([phone]) as soon as possible. In the event of elopement, notify [place] State Police ([phone]). Patient is currently involuntarily at [facility]. [facility] Frontline Oilseed Meat Presser will continue seeking placement. Please contact the Parking Ramp Attendant Cracking Machine Operator ([phone]) for any needed changes to Safety Plan. Safety plan has been provided to interdepartmental care team. Patient will be transported by [employer] at time of discharge.
[2024-04-07 18:05] LABS: HBs Antibody, Quant <3.1 mIU/mL (See Note); Hepatitis B Surface Ab Negative (See Note)
[2024-04-07 18:15] LABS: Hepatitis B Surface Ag Negative (Negative)
--- NOTE | 2024-04-07 18:19 | ED.FU.B_ITS ---
Date of service: 04/07/24 Time of Service: 18:19 Follow Up Plan: I was asked by care management and Dr. Smith to assist in the care of the patient to evaluate for EE application. I met with patient, reviewed medical records and spoke with Dr. Smith and Melvina ([facility]). Patient is suicidal and refusing treatment. Patient meets criteria for first certification for EE.
[2024-04-07 18:44] LABS: Hepatitis C Ab w Rflx HCV PCR Negative (Negative)
[2024-04-07 18:45] LABS: HIV-1/2 Ag & Ab Screen Negative (Negative)
[2024-04-07 19:15] VITALS: BP 113/65; PULSE 68; RESP 18; TEMP 37.1; O2SAT 98
[2024-04-07 22:55] VITALS: BP 115/79; PULSE 60; RESP 16; TEMP 36.9; O2SAT 98
[2024-04-08] MEDS: Nicotine 4 MG GUM CH ×6 (00:59→21:15)
[2024-04-08 05:26] VITALS: BP 118/75; PULSE 56; RESP 18; TEMP 36.6; O2SAT 98
[2024-04-08] MEDS: clonazePAM 0.5 MG TAB 1 MG PO ×2 (07:54→20:53)
[2024-04-08] MEDS: Losartan 25 MG TAB PO (07:54)
[2024-04-08 07:55] VITALS: BP 120/89; PULSE 69; RESP 16; TEMP 36.5; O2SAT 95
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
--- NOTE | 2024-04-08 15:08 | CMSP_ITS ---
Date of service: 04/08/24 Time of Service: 15:09 Care Management Safety Plan Status Status: Involuntary Reason for Wait Reason for Wait: Inpatient Admission Safety Plan Safety Plan: INVOLUNTARY FOR INPATIENT PSYCHIATRIC STABILIZATION. Safety plan has been established to meet the needs of the patient, and consideration of the care team, to adhere to patient goals, identify restrictions based on behavioral status, address nutrition, and determine allowed personal belongings, tools for hygiene and personal care. Determine level of activity including ambulation, level of supervision, visitors, and determine privileges based on behaviors and level of engagement by pt. SAFETY PLAN: 1. Will remain on SI/HI precautions. In Paper Clothes 2. Will remain in room under direct supervision of one-on-one staff at all times provided by CPSO; TIFFANIE, ADMINISTRATIVE PERSONAL ASSISTANT high school sports coach. 3. May have paper cups, plates, finger foods as well as a cardboard spoon 4. Follow [facility] Management of the Admitted Behavioral Health Patient policy. 5. Comfort bath system or shower permitted, at RN discretion. 6. No personal belongings- no personal cell phone. 7. Visitors: None at this time 8. Activities: Soft card activities, RN discretion. 9. Bathroom privileges with supervision, at RN discretion. 10. Phone: incoming/outgoing calls on [facility] cordless phone permitted, at RN discretion. 11. Due to INVOLUNTARY status, patient is being held at [facility] by the Department of Mental Health ([facility]) until 2nd certification by [facility] Psychiatrist can be performed (within 24 hours). Staff will provide de-escalation support (CPI) as needed. If patient wishes to leave [facility], staff will contact [facility] Crisis Screener ([phone]) and On-Call Refrigerator Car Icer ([phone]) as soon as possible. In the event of elopement, notify [place] [employer] Police ([phone]). Patient is currently involuntarily at [facility]. [facility] Frontline Decker Operator will continue seeking placement. Please contact the Darklight Inspector Refrigerator Car Icer ([phone]) for any needed changes to Safety Plan. Safety plan has been provided to interdepartmental care team. Patient will be transported by [employer] at time of discharge.
--- NOTE | 2024-04-08 15:08 | PDOC.CMSAFE ---
Date of service: 04/08/24 Time of Service: 15:09 Care Management Safety Plan Status Status: Involuntary Reason for Wait Reason for Wait: Inpatient Admission Safety Plan Safety Plan: INVOLUNTARY FOR INPATIENT PSYCHIATRIC STABILIZATION. Safety plan has been established to meet the needs of the patient, and consideration of the care team, to adhere to patient goals, identify restrictions based on behavioral status, address nutrition, and determine allowed personal belongings, tools for hygiene and personal care. Determine level of activity including ambulation, level of supervision, visitors, and determine privileges based on behaviors and level of engagement by pt. SAFETY PLAN: 1. Will remain on SI/HI precautions. In Paper Clothes 2. Will remain in room under direct supervision of one-on-one staff at all times provided by CPSO; TIFFANIE, COTTON FARMWORKER ax survey worker. 3. May have paper cups, plates, finger foods as well as a cardboard spoon 4. Follow [facility] Management of the Admitted Behavioral Health Patient policy. 5. Comfort bath system or shower permitted, at RN discretion. 6. No personal belongings- no personal cell phone. 7. Visitors: None at this time 8. Activities: Soft card activities, RN discretion. 9. Bathroom privileges with supervision, at RN discretion. 10. Phone: incoming/outgoing calls on [facility] cordless phone permitted, at RN discretion. 11. Due to INVOLUNTARY status, patient is being held at [facility] by the Department of Mental Health ([facility]) until 2nd certification by [facility] Psychiatrist can be performed (within 24 hours). Staff will provide de-escalation support (CPI) as needed. If patient wishes to leave [facility], staff will contact [facility] Crisis Screener ([phone]) and On-Call Caul Puller ([phone]) as soon as possible. In the event of elopement, notify [place] [employer] Police ([phone]). Patient is currently involuntarily at [facility]. [facility] Frontline High School Teacher will continue seeking placement. Please contact the Single Needle Operator Caul Puller ([phone]) for any needed changes to Safety Plan. Safety plan has been provided to interdepartmental care team. Patient will be transported by [employer] at time of discharge.
--- NOTE | 2024-04-08 15:10 | CMPROGNOTE_ITS ---
Date of service: 04/08/24 Time of Service: 15:10 Care Management Progress Note Progress Note Text Progress Note Text: Oswald was lying in bed when CM attempted to meet with him. He stated that he didn't want to talk to anyone, and that we can just send him wherever we want to. CM facilitated the second certification with the [facility] psychiatrist; Oswald refused to engage with the psychiatrist; the second certification was upheld. CM sent updated clinicals to [facility], as requested. CM spoke to admissions at [facility], who expressed interest in Oswald's referral, but did not feel that a decision would be made this evening. Once he is a ccepted, [facility] will coordinate transport. CM will continue to follow. Discharge Potential Discharge Needs: Other ([facility] follow up) Anticipated Barriers to Discharge: Bed availability Patient/Family Education Needs: Review discharge instructions, discuss Ask Me Three Transportation: Other (secure transport; cmo vs EMS) Plan: Oswald is involuntary, waiting for inpatient psychiatric treatment. Once he is accepted, [facility] will coordinate secure transport. He will follow up with his PCP and discharge plan of care. CM will continue to follow. Status Status: Involuntary Reason for Wait: Inpatient Admission SDOH(Care Management) Screening Will the Patient Participate in the Screening?: Yes Do you worry about having a steady place to live?: yes In the past 12 months, have you had to go without electric, gas, oil or water in your home?: yes Have you or anyone in your house had to go without enough food to eat?: yes Has lack of transportation kept you from medical appointments or from doing things needed for daily living?: yes Has anyone in your support network made you feel unsafe for any reason?: no Health Related Social Needs Health related social needs: housing instability, housed, with risk of homelessness(Z59.811), food insecurity(Z59.41), transportation insecurity(Z59.82) and material hardship(utilities)(Z59.87)
[2024-04-08 20:18] VITALS: BP 113/76; PULSE 63; RESP 18; TEMP 36.4; O2SAT 98
[2024-04-09] MEDS: Nicotine 4 MG GUM CH ×4 (03:59→13:09)
[2024-04-09 04:01] VITALS: BP 123/79; PULSE 56; RESP 12; TEMP 36; O2SAT 100
[2024-04-09 07:30] VITALS: BP 123/82; PULSE 54; RESP 18; TEMP 36.9; O2SAT 99
[2024-04-09] MEDS: clonazePAM 0.5 MG TAB 1 MG PO (07:35)
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
--- NOTE | 2024-04-09 10:21 | PDOC.CMDIS ---
Date of service: 04/09/24 Time of Service: 10:21 LACE Index Scoring Tool Questions: Length of Stay (in days): 3 Was the patient admitted via the E.D.?: Yes E.D. Visits: 2 Answers: Total Score: 8 Risk of Readmission: Low Risk Care Management Discharge Plan Reason for Hospitalization: Suicide Attempt, Acetaminophen OD Discharge Plan: Oswald is discharged to [facility] for inpatient psych treatment, Inpatient psych placement and secure transportation is coordinated by [facility] due to Involuntary Status. Patient/Family Education Needs: Review discharge instructions and plan to transfer to inpatient psych treatment center as ordered by [facility] SDOH Health Related Social Needs: Health related social needs risk of homeless, food insecurity, transpo insecurity, material hardship Health related social needs: housing instability, housed, with risk of homelessness(Z59.811), food insecurity(Z59.41), transportation insecurity(Z59.82) and material hardship(utilities)(Z59.87) MH Services (Omit if N/A) Current MH Services: Psychiatric Inp Disposition Disposition: [facility] Transport via of: Other ([facility] will arrive at 1:15pm. )
--- NOTE | 2024-04-09 11:59 | MHPN_ITS ---
Date of service: 04/08/24 Time of Service: 11:00 Mental Health Emergency Note Release [facility] release signed:: No Reason for Visit The client is known to [facility], however in a very limited capacity. On Sunday LUX Green and JENNIFER Arreola co-responded to Urgent Care in [facility] for a mobile crisis assessment. At the conclusion of the mobile crisis assessment on Sunday the client was safety planned with the intention to go to [facility] to seek treatment as he refused to go to [facility]. The client instead went to [facility] [employer] where he purchased two bottles of Nyquil and took both with the intention to end his life. Due to the circumstances that led him to come to [facility] and evidence of imminent risk to self LUX Norma completed an EE yesterday. Today this junior underwriter meets with the client in person on the med surge unit at [facility] for is first daily QMHP assessment. In the last 2 weeks has the pt presented for ES prior to today?: No Impression The client is a single 38 y/o male who is currently homeless, however has been staying at a homeless [facility] in [place], [place] prior to getting a DUI last week in this area. The client identifies as male and uses he/him pronouns. This junior underwriter did not complete screening tools as this was a re-assessment completed today. This junior underwriter is not yet CAMS trained so that tool was not utilized during this assessment. The client presents laying down in hospital bed dressed in proper paper hospital attire when this junior underwriter arrives in person. The client engages minimally, however answers all questions that are asked of him. When this junior underwriter asks the client how he is doing today he states: I am going great, its a new day and a new beginning. The client reports that both his appetite and sleep have been good. The client denies SI/HI. When asked about events that led up to the client coming to the hospital the client states: I don't really want to , it was a cry for help. When this junior underwriter attempts supportive counseling the client states: just send me a way you don't believe me either. Plan/Disposition Recommended Disposition: Hospitalization No. Plan: The client will remain at [facility] pending 2nd certification with psychiatrist from [facility] this afternoon. Referrals have been sent to [facility], [facility], [facility], [facility], and [facility]. [facility] is considering the client for admission pending 2nd certification. Person reported agreement to plan: No Reports/communication Outcome discussed with: Other (Verbal passover given to [facility] home health care respiratory therapist Maddy Guzmán)
--- NOTE | 2024-04-09 11:59 | PDOC.MHPN2 ---
Date of service: 04/08/24 Time of Service: 11:00 Mental Health Emergency Note Release [facility] release signed:: No Reason for Visit The client is known to [facility], however in a very limited capacity. On Sunday LUX Green and JENNIFER Arreola co-responded to Urgent Care in [facility] for a mobile crisis assessment. At the conclusion of the mobile crisis assessment on Sunday the client was safety planned with the intention to go to [facility] to seek treatment as he refused to go to [facility]. The client instead went to [facility] [employer] where he purchased two bottles of Nyquil and took both with the intention to end his life. Due to the circumstances that led him to come to [facility] and evidence of imminent risk to self LUX Norma completed an EE yesterday. Today this greeting card writer meets with the client in person on the med surge unit at [facility] for is first daily QMHP assessment. In the last 2 weeks has the pt presented for ES prior to today?: No Impression The client is a single 38 y/o male who is currently homeless, however has been staying at a homeless intermediate in [place], [place] prior to getting a DUI last week in this area. The client identifies as male and uses he/him pronouns. This greeting card writer did not complete screening tools as this was a re-assessment completed today. This greeting card writer is not yet CAMS trained so that tool was not utilized during this assessment. The client presents laying down in hospital bed dressed in proper paper hospital attire when this greeting card writer arrives in person. The client engages minimally, however answers all questions that are asked of him. When this greeting card writer asks the client how he is doing today he states: I am going great, its a new day and a new beginning. The client reports that both his appetite and sleep have been good. The client denies SI/HI. When asked about events that led up to the client coming to the hospital the client states: I don't really want to , it was a cry for help. When this greeting card writer attempts supportive counseling the client states: just send me a way you don't believe me either. Plan/Disposition Recommended Disposition: Hospitalization No. Plan: The client will remain at [facility] pending 2nd certification with psychiatrist from [facility] this afternoon. Referrals have been sent to [facility], [facility], [facility], [facility], and [facility]. [facility] is considering the client for admission pending 2nd certification. Person reported agreement to plan: No Reports/communication Outcome discussed with: Other (Verbal passover given to [facility] lawn care worker Maddy Guzmán)
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
== END 2024-04-09 13:36 | DRG 918 ==
LOC: ER 11:37 → MS 13:12
PROVIDERS: Family Medicine; Admitting Provider Family Medicine; Emergency Provider Physician Assistant; Visit Provider Family Medicine
DX: T39.1X2A Poisoning by 4-Aminophenol derivatives, intentional self-harm, initial encounter (principal); R45.851 Suicidal ideations; Z59.01 Sheltered homelessness; F32.A Depression, unspecified; F11.90 Opioid use, unspecified, uncomplicated; I10 Essential (primary) hypertension; F43.10 Post-traumatic stress disorder, unspecified; L29.8 Other pruritus; R00.0 Tachycardia, unspecified; K08.89 Other specified disorders of teeth and supporting structures; M54.42 Lumbago with sciatica, left side; F12.90 Cannabis use, unspecified, uncomplicated; T50.995A Adverse effect of other drugs, medicaments and biological substances, initial encounter; F90.9 Attention-deficit hyperactivity disorder, unspecified type
CPT/HCPCS: 00123; 36415; 80053; 80307; 85027; 86706; 86803; 87340; 87389; 93005; 96365; 96366; 99291; 80320; 80329; 81003; 84450; 84460; 85025; 85610; 93010; 99222; 99231; 99232; 99238; J0132; J1200; J3490; J7060